=== PATIENT | male | born 2000 | race Caucasian/White ===

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

== ENCOUNTER 2018-03-17 12:25 | Emergency (ER) | payer OTHER ==
[2018-03-17 12:28] VITALS: BP 117/64; PULSE 58; TEMP 98.2; BMI 19.0
--- NOTE | 2018-03-17 13:55 | PDOC ---
History of Present Illness - General Chief Complaint: Injury Stated Complaint: INJURY Time Seen by Provider: 03/17/18 13:32 - History of Present Illness Initial Comments: 03/17/18 13:52 17-year-old male without comorbidities presents for evaluation of left ankle pain. He describes an inversion-type injury while playing basketball yesterday. Past History - Past Medical History Allergies/Adverse Reactions: Allergies Allergy/AdvReac Type Severity Reaction Status Date / Time No Known Allergies Allergy Verified 03/17/18 12:28 Home Medications: Ambulatory Orders NK [No Known Home Medication] 03/17/18 Asthma: Yes COPD: No - Suicide/Smoking/Psychosocial Hx Smoking History: Never smoked Hx Alcohol Use: Yes (SOCIAL) Drug/Substance Use Hx: No Substance Use Type: Marijuana Review of Systems - Review of Systems Musculoskeletal: Yes: Joint Pain *Physical Exam - Vital Signs Last Vital Signs Temp Pulse Resp BP Pulse Ox 98.2 F 58 L 18 117/64 98 03/17/18 12:26 03/17/18 12:26 03/17/18 12:26 03/17/18 12:26 03/17/18 12:26 - Physical Exam Comments: 03/17/18 13:52 Left ankle skin color and temperature are normal. There is mild lateral swelling. There is no tenderness about the knee, proximal fibula, or along its distal coarse. There is no tenderness about the medial lateral malleolus. Moderate tenderness over the ATFL. No tenderness about the base of the fifth metatarsal or navicular. He is unable to tolerate stability testing. He has no gross sensorimotor deficits is neurovascularly intact. Moderate Sedation - Procedure Monitoring Vital Signs: Procedure Monitoring Vital Signs Temperature 98.2 F 03/17/18 12:26 Pulse Rate 58 L 03/17/18 12:26 Respiratory Rate 18 03/17/18 12:26 Blood Pressure 117/64 03/17/18 12:26 O2 Sat by Pulse Oximetry (%) 98 03/17/18 12:26 ED Treatment Course - RADIOLOGY Radiology Studies Ordered: Category Date Time Status ANKLE-LEFT [RAD] Stat Radiology 03/17/18 13:35 Taken Medical Decision Making - Medical Decision Making 03/17/18 13:53 Stray show no evidence of fracture trauma or destructive process *DC/Admit/Observation/Transfer Diagnosis at time of Disposition: Ankle sprain - Discharge Dispostion Disposition: HOME Condition at time of disposition: Stable Decision to Admit order: No - Referrals Referrals: Collins Oakley MD [Staff Physician] - - Patient Instructions Printed Discharge Instructions: Ankle Sprain, DI for Ankle Sprain Additional Instructions: Weight-bear as tolerated with the use of crutches and the Aircast. Follow-up with orthopedic surgery in 2-3 days for further evaluation and treatment options. Tylenol Motrin as directed for pain and swelling. Return to the emergency room should symptoms worsen or go unresolved. No sports until cleared by orthopedics. - Post Discharge Activity Forms/Work/School Notes: Back to School
== END 2018-03-17 14:02 | disposition home or self-care (01) ==
LOC: JERFT 12:25
PROC: 2W3RX1Z Immobilization of Left Lower Leg using Splint (ICD-10-PCS; principal; 2018-03-17)
DX: S93.402A Sprain of unspecified ligament of left ankle, initial encounter (principal); X58.XXXA Exposure to other specified factors, initial encounter; Y93.9 Activity, unspecified; Y92.9 Unspecified place or not applicable; J45.909 Unspecified asthma, uncomplicated
CPT/HCPCS: 29515; 73610-TC-LT-FY; 99281-25